=== PATIENT | female | born 1995 | race African-American/Black ===

== ENCOUNTER 2022-08-27 17:57 | Emergency (ER) | payer OTHER, SELFPAY ==
[2022-08-27 18:19] VITALS: BP 154/92; PULSE 100; RESP 20; TEMP 37.1; O2SAT 98
--- NOTE | 2022-08-27 18:29 | ED.EXTPRO ---
HPI - Extremity Problem General Chief complaint: Extremity Problem,Nontraumatic Stated complaint: Left Leg Pain Time Seen by Provider: 08/27/22 18:29 Source: patient Mode of arrival: ambulatory Limitations: no limitations History of Present Illness HPI Narrative: 26-year-old mostlly nonverbal female presents mother for complaints of left knee pain after a fall 3 days ago. She states she slipped and landed with the left knee bend behind her and the right leg straight out. Endorses she has been limping but states her gait has improved today. She has been taking Tylenol applying ice. Related Data Home Medications Medication Instructions Recorded Confirmed lisinopril 40 mg tablet 40 mg PO DAILY 08/27/22 08/27/22 Allergies Allergy/AdvReac Type Severity Reaction Status Date / Time No Known Allergies Allergy Verified 08/27/22 18:17 Review of Systems Review of Systems: per Mother CONSTITUTIONAL: Denies fever, chills EYES: Denies visual changes ENT: Denies rhinorrhea, congestion CARDIOVASCULAR: Denies chest pain, palpitations, or edema. RESPIRATORY: Denies cough or dyspnea. SKIN: Denies rash, itching, or wounds. MUSCULOSKELETAL: Per HPI NEUROLOGIC: Denies headache, numbness, tingling, or weakness. All systems reviewed & are unremarkable except as noted in HPI and below PMFSH Comments At time of signature, I have reviewed and agree with nursing past medical, surgical, social and family history unless otherwise noted. Please see nursing chart for further information. There is no relevant family history pertinent to the presenting complaint Exam Narrative: GENERAL: Well-appearing CHEST: Speaks in full sentences. No respiratory distress. HEART: Regular rate and rhythm. Normal and equal peripheral pulses. EXTREMITIES: Left medial knee with mild swelling and TTP, LLE has normal strength and sensation, normal range of motion at knee. No obvious deformity, alignment normal, pulse palpable and equal bilaterally, skin warm, dry, pink. Capillary refill less than 3 seconds. SKIN: Warm, dry, no rash. NEURO: Alert, speaks minimally PSYCH: Normal mood flat affect Course Course Emergency Course: Patient is aware of diagnosis, understands and agrees to treatment plan. Anticipatory guidance given. Patient agrees to follow-up as directed and is aware of reasons to seek care at the emergency department. Portions of this record may have been created with voice recognition software Level of Care: Express Care Visit Vital Signs Vital signs: Vital Signs Temperature 98.8 F 08/27/22 18:19 Pulse Rate 100 08/27/22 18:19 Respiratory Rate 20 08/27/22 18:19 Blood Pressure 154/92 H 08/27/22 18:19 Pulse Oximetry 98 08/27/22 18:19 Oxygen Delivery Room Air 08/27/22 18:19 Temperature 98.8 F 08/27/22 18:19 Pulse Rate 100 08/27/22 18:19 Respiratory Rate 20 08/27/22 18:19 Blood Pressure 154/92 H 08/27/22 18:19 Pulse Oximetry 98 08/27/22 18:19 Oxygen Delivery Room Air 08/27/22 18:19 Reviewed MDM - Extremity (Nontraumatic) MDM Narrative Medical decision making narrative: BP elevated, patient has not taken medication yet today. Advised supportive measures for left knee pain and signs/symptoms to go to the ER. Discussed option of imaging, not indicated at this time as pt is improving; mother is in agreement. Pt is appropriate for outpt treatment and f/u. Discharge Plan Discharge Clinical Impression: Acute pain of left knee Patient Disposition: Home, Self-Care Condition: Stable Instructions: Knee Pain (ED) Additional Instructions: Rest and elevate the left leg; bear weight as tolerated Apply ice 15-20 minute intervals several times a day Keep it wrapped with BONIFACIO or use a soft karuna splint Motrin 600mg -800mg every 8 hours, alternate with Tylenol 1000mg every 8 hours as needed Follow up with your primary care provider as needed in 1 week. go to the ER for worsening symptoms
== END 2022-08-27 18:42 | disposition home or self-care (01) ==
PROVIDERS: Emergency Provider Nurse Practitioner Family
DX: M25.562 Pain in left knee (principal); I10 Essential (primary) hypertension
CPT/HCPCS: 99202; G0463